=== PATIENT | female | born 1935 | race Caucasian/White ===

== ENCOUNTER 2023-08-01 18:40 | Inpatient (IN) | payer OTHER ==
[~2023-08-01] VITALS: Ht 157.5 cm; Wt 54.4 kg
[2023-08-01 20:27] LABS: HEMATOCRIT 34.8 % (36.0-45.00); HEMOGLOBIN 11.9 g/dL (12.0-15.00); MEAN CORPUSCULAR HEMOGLOBIN 30.7 pg (27.00-32.0); MEAN CORPUSCULAR HGB CONC 34.1 g/dl (32.0-36.0); PLATELET COUNT 264 K/uL (150-450); RED BLOOD COUNT 3.86 M/uL (4.00-6.00); RED CELL DISTRIBUTION WIDTH 13.8 % (11.5-14.5)
[2023-08-01 20:43] LABS: INR 1.1; PARTIAL THROMBOPLASTIN TIME 26.5 SECONDS (22.0-34.0); PROTHROMBIN TIME 11.5 SECONDS (9.0-11.5)
[2023-08-01 20:49] LABS: ALBUMIN 3.1 gm/dL (3.4-5.0); BILIRUBIN TOTAL 0.83 mg/dL (0.3-1.2); CALCIUM 8.6 mg/dL (8.5-10.1); CREATININE SERUM 1.72 mg/dL (0.55-1.02); GFR 28.11; GLOBULINA 3.2 G/DL (2.4-3.5); POTASSIUM 3.77 mEq/L (3.5-5.1); TOTAL PROTEIN 6.3 gm/dL (6.4-8.2)
[2023-08-01 21:12] LABS: PH,URINE 5.5 (5.0-8.0); URINE APPEARANCE Turbid; URINE BILIRRUBIN Negative (NEGATIVE); URINE BLOOD Large; URINE COLOR Yellow; URINE GLUCOSE Negative (NEGATIVE); URINE LEUKOCYTE Large; URINE NITRATE Negative
[2023-08-01 21:16] LABS: URINE EPITHELIAL CELLS 24.5 uL (0.0-38.8); URINE RBC 144.4 uL (0.0-20.8)
[2023-08-01 21:47] LABS: URINE BACTERIA > 9821.2 uL (0.0-1933); URINE PROTEIN 100 (NEGATIVE)
[2023-08-01 21:49] LABS: URINE WBC > 5548.3 uL (0.0-23.2)
[2023-08-01] MEDS ORDERED: 0.9 % SODIUM CHLORIDE 500 ML IV ONE (22:15)
[2023-08-01] MEDS ORDERED: CEFTRIAXONE SODIUM 2,000 MG VIAL IV ONE (22:15)
[2023-08-01] MEDS ORDERED: MEROPENEM 500 MG/VIAL VIAL IV SCH (23:29)
[2023-08-01] MEDS ORDERED: ONDANSETRON HCL 4 MG in 0.9 % SODIUM CHLORIDE 50 ML IV PRN (23:30)
[2023-08-01] MEDS ORDERED: ACETAMINOPHEN 500 MG GEL..CAP PO PRN (23:30)
[2023-08-01] MEDS ORDERED: 0.9 % SODIUM CHLORIDE 1,000 ML IV SCH (23:30)
[2023-08-02 01:21] LABS: PHOSPHOROUS 4.3 mg/dL (2.5-4.9)
[2023-08-02 01:29] LABS: C-REACTIVE PROTEIN 15.2 MG/DL (0.00-0.29)
[2023-08-02] MEDS ORDERED: FAMOTIDINE/PF 20 MG in 0.9 % SODIUM CHLORIDE 8 ML IV PUSH SCH (09:00)
[2023-08-02] MEDS ORDERED: MEROPENEM 500 MG/VIAL VIAL IV SCH (09:00)
[2023-08-02] MEDS ORDERED: DEXTROSE 5 % AND 0.9 % NACL 1,000 ML IV SCH (11:45)
[2023-08-02] MEDS ORDERED: RISPERIDONE 0.25 MG TABLET PO SCH (17:00)
[2023-08-02] MEDS ORDERED: LORazepam 2 MG/ML VIAL IV PRN (19:30)
[2023-08-02] MEDS ORDERED: DOCUSATE SODIUM 100MG CAP PO SCH (21:00)
[2023-08-02] MEDS ORDERED: TRAZODONE HCL 50 MG TABLET PO SCH (21:00)
[2023-08-03 06:21] LABS: HEMATOCRIT 32.1 % (36.0-45.00); HEMOGLOBIN 10.9 g/dL (12.0-15.00); MEAN CORPUSCULAR HEMOGLOBIN 30.8 pg (27.00-32.0); MEAN CORPUSCULAR HGB CONC 33.9 g/dl (32.0-36.0); PLATELET COUNT 238 K/uL (150-450); RED BLOOD COUNT 3.53 M/uL (4.00-6.00); RED CELL DISTRIBUTION WIDTH 14.3 % (11.5-14.5)
[2023-08-03 07:15] LABS: ALBUMIN 2.5 gm/dL (3.4-5.0); BILIRUBIN TOTAL 0.52 mg/dL (0.3-1.2); CREATININE SERUM 2.14 mg/dL (0.55-1.02); GFR 21.85; GLOBULINA 2.9 G/DL (2.4-3.5); POTASSIUM 3.31 mEq/L (3.5-5.1); TOTAL PROTEIN 5.4 gm/dL (6.4-8.2)
[2023-08-03] MEDS ORDERED: MULTIVIT INFUSN,ADULT 4,VIT K 10 ML VIAL IV SCH (12:26)
[2023-08-03] MEDS ORDERED: POTASSIUM BICARBONATE/CIT AC 25 MEQ TABLET.EFF PO ONE (12:30)
[2023-08-03] MEDS ORDERED: RISPERIDONE 1 MG TABLET PO SCH (17:00)
[2023-08-03] MEDS ORDERED: TRAZODONE HCL 50 MG TABLET PO SCH (21:00)
[2023-08-04 06:36] LABS: HEMATOCRIT 32.7 % (36.0-45.00); HEMOGLOBIN 11.2 g/dL (12.0-15.00); MEAN CELL VOLUME 87.6 fL (80.00-100.00); MEAN CORPUSCULAR HEMOGLOBIN 29.9 pg (27.00-32.0); MEAN CORPUSCULAR HGB CONC 34.1 g/dl (32.0-36.0); PLATELET COUNT 243 K/uL (150-450); RED BLOOD COUNT 3.73 M/uL (4.00-6.00)
[2023-08-04 07:14] LABS: PHOSPHOROUS 2.8 mg/dL (2.5-4.9)
[2023-08-04 07:15] LABS: ALBUMIN 2.5 gm/dL (3.4-5.0); C-REACTIVE PROTEIN 13.4 MG/DL (0.00-0.29); CALCIUM 8.1 mg/dL (8.5-10.1); CREATININE SERUM 1.67 mg/dL (0.55-1.02); GFR 29.09; MAGNESIUM 1.8 mg/dL (1.8-2.4); PHOSPHOROUS 2.7 mg/dL (2.5-4.9); POTASSIUM 3.33 mEq/L (3.5-5.1)
[2023-08-04 07:18] LABS: ERYTHROCYTE SEDIMENTATION RATE 76 mm/hr
[2023-08-04] MEDS ORDERED: RISPERIDONE 1 MG TABLET PO SCH (09:00)
[2023-08-04] MEDS ORDERED: FAMOtidine 20 MG TABLET PO SCH (21:00)
[2023-08-05 07:34] LABS: PH,URINE 5.5 (5.0-8.0); URINE APPEARANCE Error; URINE BILIRRUBIN Negative (NEGATIVE); URINE BLOOD Large; URINE COLOR Yellow; URINE GLUCOSE Negative (NEGATIVE); URINE LEUKOCYTE Small; URINE NITRATE Negative; URINE PROTEIN 30 (NEGATIVE); URINE UROBILINOGEN 0.2 E.U./dl
[2023-08-05 07:38] LABS: URINE BACTERIA 80.6 uL (0.0-1933); URINE EPITHELIAL CELLS 24.7 uL (0.0-38.8)
[2023-08-05 08:23] LABS: URINE RBC 208.5 uL (0.0-20.8); URINE WBC 93.6 uL (0.0-23.2)
[2023-08-05] MEDS ORDERED: FAMOtidine 20 MG TABLET PO SCH (09:00)
[2023-08-07 07:48] LABS: HEMATOCRIT 29.7 % (36.0-45.00); MEAN CELL VOLUME 89.6 fL (80.00-100.00); MEAN CORPUSCULAR HEMOGLOBIN 30.1 pg (27.00-32.0); MEAN CORPUSCULAR HGB CONC 33.7 g/dl (32.0-36.0); PLATELET COUNT 261 K/uL (150-450); RED BLOOD COUNT 3.32 M/uL (4.00-6.00)
[2023-08-07 08:32] LABS: ERYTHROCYTE SEDIMENTATION RATE 41 mm/hr
[2023-08-07 10:48] LABS: ALBUMIN 2.2 gm/dL (3.4-5.0); BILIRUBIN TOTAL 0.5 mg/dL (0.3-1.2); CALCIUM 7.6 mg/dL (8.5-10.1); CREATININE SERUM 1.22 mg/dL (0.55-1.02); GFR 41.79; GLOBULINA 3.3 G/DL (2.4-3.5); POTASSIUM 3.29 mEq/L (3.5-5.1); TOTAL PROTEIN 5.5 gm/dL (6.4-8.2)
[2023-08-07] MEDS ORDERED: DEXTROSE 5 %-0.45 % SOD CHLORD 1,000 ML IV SCH (11:30)
[2023-08-07] MEDS ORDERED: POTASSIUM CHLORIDE IN WATER 100 ML IV ONE (13:15)
[2023-08-08] MEDS ORDERED: RISPERIDONE0.5 MG (11:32)
[2023-08-08] MEDS ORDERED: DOCUSATE SODIU100 MG (11:32)
[2023-08-08] MEDS ORDERED: TRAZODONE HCL100 MG (11:32)
[2023-08-08 15:34] LABS: ALBUMIN 2.3 gm/dL (3.4-5.0); BILIRUBIN TOTAL 0.43 mg/dL (0.3-1.2); CALCIUM 8.1 mg/dL (8.5-10.1); CREATININE SERUM 1.02 mg/dL (0.55-1.02); GFR 51.38; GLOBULINA 3.5 G/DL (2.4-3.5); POTASSIUM 3.11 mEq/L (3.5-5.1); TOTAL PROTEIN 5.8 gm/dL (6.4-8.2)
== END 2023-08-08 19:58 | disposition home or self-care (01) | DRG 872 ==
LOC: ER 18:40 → SEC-K 23:35 → MEDJ 23:35
PROVIDERS: General Practice; Internal Medicine; Internal Medicine Infectious Disease; Internal Medicine Nephrology; ADMIT Internal Medicine; ATTEND Internal Medicine
PROC: BW28ZZZ Computerized Tomography (CT Scan) of Head (ICD-10-PCS; principal; 2023-08-01)
PROC: BT43ZZZ Ultrasonography of Bilateral Kidneys (ICD-10-PCS; 2023-08-02)
PROC: 4A12X4Z Monitoring of Cardiac Electrical Activity, External Approach (ICD-10-PCS; 2023-08-02)
DX: A41.9 Sepsis, unspecified organism (principal); N39.0 Urinary tract infection, site not specified; N17.9 Acute kidney failure, unspecified; E87.0 Hyperosmolality and hypernatremia; F05 Delirium due to known physiological condition; Z16.12 Extended spectrum beta lactamase (ESBL) resistance; E86.0 Dehydration; B96.20 Unspecified Escherichia coli [E. coli] as the cause of diseases classified elsewhere; G30.9 Alzheimer's disease, unspecified; F02.80 Dementia in other diseases classified elsewhere, unspecified severity, without behavioral disturbance, psychotic disturbance, mood disturbance, and anxiety; N18.9 Chronic kidney disease, unspecified